=== PATIENT | female | born 1985 | race American Indian/Alaskan Native ===

== ENCOUNTER 2017-04-30 19:12 | Emergency (ER) | payer MEDICAID ==
[2017-04-30] MEDS ORDERED: MOTRIN PO ONE (20:25)
[2017-04-30] MEDS ORDERED: PERCOCET 5/325 PO ONE (20:25)
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
--- NOTE | 2017-04-30 23:02 | XRay Report ---
FINAL REPORT EXAM: XR LT ANKLE CLINICAL INDICATIONS: S/P fall swollen/painful left ankle FINDINGS: AP, lateral and mortise views of the right ankle were acquired. There is a comminuted segmental fracture of the distal fibula, beginning proximally approximately 3.5 cm proximal to the ankle joint. The major distal fibular fracture fragment is posteriorly displaced by 0.5 cm. The medial malleolus is intact. On the lateral view, there appears to be a fracture og the posterior malleolus of the distal tibial plafond. The talus appears to approximately 0.4 cm posteriorly displaced with regard to the tibial plafond. IMPRESSION: COMMINUTED FRACTURE OF DISTAL FIBULA FRACTURE OF POSTERIOR MALLEOLUS OF DISTAL TIBIAL PLAFOND MILD POSTERIOR DISPLACEMENT OF TALUS WITH REGARD TO TIBIAL PLAFOND
--- NOTE | 2017-04-30 23:03 | XRay Report ---
FINAL REPORT EXAM: XR LT FOOT CLINICAL INDICATIONS: S/P fall swollen/painful left foot FINDINGS: AP and lateral views of the left foot were acquired. No fracture is seen in the left foot. There is a comminuted fracture of the distal fibula as well as a fracture of the posterior malleolus of the distal tibia. There is mild posterior displacement of the talus with regard to the tibial plafond. IMPRESSION: FRACTURES OF DISTAL FIBULA AND THE POSTERIOR MALLEOLUS OF DISTAL TIBIA NO FRACTURE SEEN IN THE LEFT FOOT
[2017-04-30 23:53] VITALS: BP 152/80
== END 2017-05-01 00:03 | disposition home or self-care (01) ==
LOC: ED 19:12
DX: S82.392A Other fracture of lower end of left tibia, initial encounter for closed fracture (principal); S82.832A Other fracture of upper and lower end of left fibula, initial encounter for closed fracture; W01.0XXA Fall on same level from slipping, tripping and stumbling without subsequent striking against object, initial encounter; Y93.89 Activity, other specified; Y92.89 Other specified places as the place of occurrence of the external cause; Y99.8 Other external cause status; F17.200 Nicotine dependence, unspecified, uncomplicated

== ENCOUNTER 2017-05-17 12:05 | Day surgery (SDC) | payer MEDICAID ==
[~2017-05-17 12:05] MED LIST: ANCEF/STERILE WATER 2 GM/20 ML IV NR
[2017-05-17 12:52] LABS: Hematocrit 38.3 % (30.3-42.9)
[2017-05-17] MEDS ORDERED: DIPRIVAN 10 MG/ML IV ONE (13:57)
[2017-05-17] MEDS ORDERED: SUBLIMAZE ONE (13:57)
[2017-05-17] MEDS ORDERED: XYLOCAINE MPF 2% ONE (13:59)
[2017-05-17] MEDS ORDERED: PEPCID PO NR (14:00)
[2017-05-17] MEDS ORDERED: LACTATED RINGERS 1,000 ML IV SCH (14:00)
--- NOTE | 2017-05-17 14:10 | Anesthesia Day of Surgery ---
Anesthesia Day of Surgery - Day of Surgery Patient Examined: Yes Patient H&P Reviewed: Yes Patient is NPO: Yes
--- NOTE | 2017-05-17 14:10 | Anesthesia Consultation ---
Anesthesia Consult and Med Hx Date of service: 05/17/17 - Airway Anesthetic Teeth Evaluation: Good ROM Head & Neck: Adequate Mental/Hyoid Distance: Adequate Mallampati Class: Class II Intubation Access Assessment: Probably Good - Pre-Operative Health Status ASA Pre-Surgery Classification: ASA2 Proposed Anesthetic Plan: General - Pulmonary Hx Smoking: Yes (1/2 PPD X 6 YRS) Hx Asthma: No COPD: No Hx Pneumonia: No Hx Sleep Apnea: No (LETICIA PRE SCREEN LOW RISK.) - Cardiovascular System Hx Hypertension: Yes (NO MEDS) Hx Heart Attack/AMI: No Hx Valvular Heart Disease: No - Central Nervous System Hx Seizures: No CVA: No Hx Psychiatric Problems: No - Endocrine Hx Renal Disease: No Hx End Stage Renal Disease: No Hx Liver Disease: No Hx Hypothyroidism: No Hx Hyperthyroidism: No - Hematic Hx Anemia: No Hx Sickle Cell Disease: 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
--- NOTE | 2017-05-17 14:17 | Cat Scan Report ---
CT LOWER EXTREMITY LEFT WITHOUT CONTRAST INDICATION: Preop evaluation of fracture pattern. COMPARISON: 04/30/2017 radiographs. FINDINGS: Noncontrast multiplanar left ankle CT reconstructions demonstrate intact ankle mortise, though mild talar tilt suspected, limiting assessment. Comminuted distal fibular fractures noted with an oblique component as on coronal series 200, image 54 and a largest 1.7 cm comminuted fracture anteriorly, image 49 with maximum displacement of approximately 4-5 mm. Distal tibial comminuted fracture involving its posterior malleolus also noted extending to the plafond posteriorly, best seen on sagittal series 101, image 28 with articular surface offset of 2-3 mm at the fracture site. Largest posterior malleolar fracture fragment is approximately 2.1 cm. A 2 mm calcification also noted inferior to the medial malleolus as on coronal image 35. Mild diffuse soft tissue swelling also suspected, extending to the foot. Overlying bandage or cast also noted. CONCLUSION: Comminuted left distal fibular and distal tibial posterior malleolar acute fractures extending to the plafond/articular surface noted, as described. Talar tilt also noted. Please correlate. Thank you for the opportunity to participate in this patient's care.
[2017-05-17] MEDS ORDERED: DECADRON ONE (14:32)
[2017-05-17] MEDS ORDERED: NACL 0.9% IR ONE (14:51)
[2017-05-17] MEDS ORDERED: VERSED IV NR (15:00)
[2017-05-17] MEDS ORDERED: MORPHINE ONE ×2 (15:00→15:56)
[2017-05-17] MEDS ORDERED: ZOFRAN ONE (15:28)
--- NOTE | 2017-05-17 15:58 | Post Anesthesia Evaluation ---
- Post Anesthesia Evaluation Patient Participated: Yes Airway Patent: Yes Stable Respiratory Function: Yes Nausea/Vomiting: No Temp > 96.8F: Yes Pain Manageable: Yes Adequeate Hydration: Yes Anesthesia Complications: No
[2017-05-17] MEDS ORDERED: DILAUDID IV PRN (16:01)
[2017-05-17] MEDS ORDERED: DILAUDID ONE (16:01)
--- NOTE | 2017-05-17 16:10 | XRay Report ---
Operative left ankle: There is a fracture of the distal fibula stabilized with a plate as well as a transverse screw extending through the distal tibia. The tibiotalar alignment is unremarkable as is that of the tibia and fibula.
[2017-05-17] MEDS ORDERED: PERCOCET 5/325 PO ONE (16:48)
[2017-05-17] MEDS ORDERED: TORADOL IV ONE (16:49)
--- NOTE | 2017-05-17 17:34 | Procedure Note ---
Date of procedure: 05/17/17 Pre-op diagnosis: displaced bimalleolar fracture left ankle Post-op diagnosis: same Procedure: Open Reduction internal fixation left ankle Procedure The patient was brought to the OR placed in the OR table in supine position following induction and intubation by anesthesia the patient's left lower extremity was prepped and draped in the usual sterile manner. Timeout procedure was done to identify the patient and correct operative site. The leg was exsanguinated followed by inflation of the pneumatic tourniquet to 300 mmHg. A lateral incision was made over the distal fibula was taken down sharply through skin and subcutaneous this was taken directly down to the bone revealing the fracture site The fracture fragments were removed. Manipulated into a more reduced position this was then held in place by way of bone clamps next a 7-hole one third semitubular plate was applied to the lateral surface of the distal fibula AP and lateral views were obtained showing good reduction at the fracture site, appropriate screws of various lengths were applied as well as a syndesmotic screw which spanned both the fibula and tibia. AP and Lateral views on the C- arm fluroscope showed good fracture reduction and placement of hardware. The wound was then copiously irrigated and was closed in a standard routine fashion. Dressings were applied as well as a well-padded posterior splint with the ankle in 90 of dorsiflexion. She tolerated the procedure and there were no complications she was sent to postanesthesia in stable condition Anesthesia: KIERSTEN Surgeon: SANIYA LEYVA Estimated blood loss: 50-100ml Pathology: none Condition: stable Disposition: PACU
[2017-05-17 17:41] VITALS: BP 179/85
== END 2017-05-17 17:54 | disposition home or self-care (01) ==
LOC: OR 12:05
PROVIDERS: ATTEND Orthopaedic Surgery
DX: S82.62XA Displaced fracture of lateral malleolus of left fibula, initial encounter for closed fracture (principal); W01.0XXA Fall on same level from slipping, tripping and stumbling without subsequent striking against object, initial encounter; Y93.9 Activity, unspecified; Y92.89 Other specified places as the place of occurrence of the external cause; Y99.9 Unspecified external cause status; I10 Essential (primary) hypertension; Z87.891 Personal history of nicotine dependence
CPT/HCPCS: 27792; 36415; 73600; 73700; 81025; 85014; 85018; C1713; J0690; J1100; J1170; J1885; J2250; J2270; J2405; J2704; J3010; J7120

== ENCOUNTER 2021-07-12 22:02 | Emergency (ER) | payer OTHER, MEDICAID ==
[2021-07-12 22:06] VITALS: BP 148/93
[2021-07-13] MEDS ORDERED: ONDANSETRON 4 MG ODT TAB PO ONE (00:07)
[2021-07-13] MEDS ORDERED: HYDROcodone/ACETAMINOPHEN 5-325 MG TAB PO ONE (00:07)
[2021-07-13] MEDS ORDERED: IBUPROFEN 600 MG TAB PO ONE (00:07)
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
== END 2021-07-13 02:55 | disposition home or self-care (01) ==
LOC: ED 22:02
DX: S83.91XA Sprain of unspecified site of right knee, initial encounter (principal); S20.219A Contusion of unspecified front wall of thorax, initial encounter; S29.012A Strain of muscle and tendon of back wall of thorax, initial encounter; I10 Essential (primary) hypertension; F17.200 Nicotine dependence, unspecified, uncomplicated; Z79.899 Other long term (current) drug therapy; V89.2XXA Person injured in unspecified motor-vehicle accident, traffic, initial encounter; Y93.89 Activity, other specified; Y92.488 Other paved roadways as the place of occurrence of the external cause; Y99.8 Other external cause status
CPT/HCPCS: 71046; 72070; 99283; J3490; Q0162